=== PATIENT | female | born 1995 ===

== ENCOUNTER → 2023-02-27 | Outpatient (CLI) | payer OTHER ==
[2023-03-05 15:11] LABS: CHLAMYDIA BY NAA Negative (Negative); GONOCOCCUS BY NAA Negative (Negative); HPV 16 Negative (Negative); HPV 18 Negative (Negative); HPV OTHER HR TYPES Negative (Negative); TRICH VAG BY NAA Negative (Negative)
== END ==
LOC: LAB 15:30 → LAB SHORT 15:30
PROVIDERS: Registered Nurse
DX: Z01.419 Encounter for gynecological examination (general) (routine) without abnormal findings (principal)
CPT/HCPCS: 87491; 87591; 87624; 87661; G0145

== ENCOUNTER → 2024-03-03 | Outpatient (CLI) | payer OTHER | LOC: LAB 10:23 → LAB SHORT 10:23 | DX: L02.416 Cutaneous abscess of left lower limb (principal) | CPT/HCPCS: 87070; 87077; 87147; 87186; 87205 ==

== ENCOUNTER → 2024-09-09 | Outpatient (CLI) | payer OTHER | LOC: LAB SHORT 16:36 → LAB 16:36 | DX: J02.9 Acute pharyngitis, unspecified (principal) | CPT/HCPCS: 87081 ==